=== PATIENT | female | born 1980 | race Caucasian/White ===

== ENCOUNTER 2018-08-27 10:35 | Emergency (ER) | payer OTHER ==
[2018-08-27] MEDS ORDERED: METHYLPREDNISOLONE 125 MG INJ ONE (11:38)
[2018-08-27] MEDS ORDERED: FAMOTIDINE 20 MG TAB ONE (11:38)
--- NOTE | 2018-08-27 13:05 | ER ---
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 Transition of care: patient was not received from another setting of care. Onset: The symptoms/episode began/occurred acutely. Anaphylaxis evaluation, the patient reports or I have noted the following symptoms which indicate a significant risk of anaphylaxis:. Onset of symptoms was August 27, 2018 at 10:15. Risk Assessment: Do you want to hurt yourself or someone else? Patient reports no desire to harm self or others. Initial Sepsis Screen: Does the patient meet any 2 criteria? No. Patient's initial sepsis screen is negative. Does the patient have a suspected source of infection? No. Patient's initial sepsis screen is negative. Care prior to arrival: None. 10:41 Method Of Arrival: Ambulatory 10:41 Acuity: DANIEL 3 Triage Assessment: 10:44 General: Appears in no apparent distress. uncomfortable, Behavior is calm, cooperative, hj appropriate for age. Pain: Denies pain. 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 - Social history:: Smoking status: Patient/guardian denies using tobacco, Patient/guardian denies using alcohol. - Ebola Screening: : Patient negative for fever greater than or equal to 101.5 degrees Fahrenheit, and additional compatible Ebola Virus Disease symptoms Patient denies exposure to infectious person Patient denies travel to an Ebola-affected area in the 21 days before illness onset. Screenin:44 Abuse screen: Denies threats or abuse. Denies injuries from another. Nutritional hj screening: No deficits noted. Tuberculosis screening: No symptoms or risk factors identified. Fall Risk None identified. Assessment: 10:44 Respiratory: Airway is patent Respiratory effort is even, unlabored, Respiratory hj pattern is regular, symmetrical, Breath sounds are clear. 11:00 General: Appears in no apparent distress. comfortable, Behavior is calm, cooperative, em Reports eat a banana bread snack with nuts, denies allergies to foods Denies fever. Pain: Denies pain. Neuro: Level of Consciousness is awake, alert, obeys commands, Oriented to person, place, time, situation, Speech is normal, Denies difficulty swallowing. Cardiovascular: Capillary refill < 3 seconds Patient's skin is warm and dry. Respiratory: Airway is patent Respiratory effort is even, unlabored, Respiratory pattern is regular, symmetrical, Breath sounds are clear bilaterally. Denies shortness of breath labored breathing. GI: Abdomen is obese, Patient currently denies nausea, vomiting. : No signs and/or symptoms were reported regarding the genitourinary system. Derm: Rash noted that is urticaria, on right ear, left ear and neck. Musculoskeletal: Range of motion: intact in all extremities. 11:00 EENT: Nares are clear Oral mucosa is moist. Throat uvula enlarged. Denies difficulty em swallowing. 12:00 Reassessment: Patient appears in no apparent distress at this time. Patient and/or em family updated on plan of care and expected duration. Pain level reassessed. Patient is alert, oriented x 3, equal unlabored respirations, skin warm/dry/pink. states swelling in uvula has improved to an 8/10, provider notified, will continue to monitor Patient states feeling better. Patient states symptoms have improved. 12:35 Reassessment: report feeling better, symptoms have diminished rates swelling 4/10, em provider notified. Vital Signs: 10:45 BP 151 / 98; Pulse 98; Resp 18; Temp 99.1(O); Pulse Ox 100% on R/A; Weight 122.47 kg; Height 5 ft. 1 in. (154.94 cm); Pain 0/10; 12:35 BP 148 / 94; Pulse 86; Resp 18; Pulse Ox 99% on R/A; Pain 0/10; em 10:45 Body Mass Index 51.02 (122.47 kg, 154.94 cm) ED Course: 10:38 Patient arrived in ED. mr 10:38 out of town, doctor is Private Physician. mr 10:44 Triage completed. hj 10:45 Arm band placed on left wrist. hj 10:46 Patient has correct armband on for positive identification. Bed in low position. Call hj light in reach. Side rails up X 1. 10:47 Rob Bailey PA is [facility]. jr8 10:47 Anselmo Benitez MD is Attending Physician. jr8 11:26 Scotty Cowan LVN is Primary Nurse. em 13:20 No provider procedures requiring assistance completed. Patient did not have IV access em during this emergency room visit. Administered Medications: 11:34 Drug: SOLU-Medrol 125 mg Route: IM; Site: left gluteus; em 13:22 Follow up: Response: No adverse reaction; Marked relief of symptoms em 11:34 Drug: Pepcid 20 mg Route: PO; em 13:22 Follow up: Response: No adverse reaction; Marked relief of symptoms em Outcome: 13:04 Discharge ordered by . jr8 13:20 Discharged to home ambulatory, with family. em 13:20 Condition: good 13:20 Discharge instructions given to patient, family, Instructed on discharge instructions, follow up and referral plans. medication usage, Demonstrated understanding of instructions, follow-up care, medications, Prescriptions given X 2. 13:25 Patient left the ED. em Signatures: Mago GarciaScotty, CARLOZ TEXTILE BROKER em Rob Bailey PA PA jr8 Srinivasan Pitts RN RN Corrections: (The following items were deleted from the chart) 10:47 10:45 Pulse 98bpm; Resp 18bpm; Pulse Ox 100% RA; Temp 99.1F Oral; 122.47 kg; Height 5 hj ft. 1 in.; BMI: 51.0; Pain 0/10; hj 13:18 11:00 Neuro: Level of Consciousness is awake, alert, obeys commands, Oriented to em person, place, time, situation, em 13:20 11:00 Respiratory: Airway is patent Respiratory effort is even, unlabored, Respiratory em pattern is regular, symmetrical, Breath sounds are clear bilaterally. em
--- NOTE | 2018-08-27 13:05 | EDPHYS ---
Physician Documentation [facility] Name: Yuliana Stovall Age: 38 yrs Sex: Female : 1980 Arrival Date: 08/27/2018 Time: 10:38 Bed 14 Private MD: out of town, doctor ED Physician Anselmo Benitez HPI: 08/27 11:42 This 38 yrs old Female presents to ER via Ambulatory with complaints of jr8 Allergic Reaction. 11:42 The patient presents with difficulty swallowing, itching, rash. Onset: The jr8 symptoms/episode began/occurred acutely, today. Associated signs and symptoms: The patient has no apparent associated signs or symptoms. Possible causes: [place] Banana bread crackers . At home the patient or guardian has treated the symptoms with Benadryl. Severity of symptoms: At their worst the symptoms were mild in the emergency department the symptoms are unchanged. The patient has not experienced similar symptoms in the past. The patient has not recently seen a physician. 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 - Social history:: Smoking status: Patient/guardian denies using tobacco, Patient/guardian denies using alcohol. - Ebola Screening: : Patient negative for fever greater than or equal to 101.5 degrees Fahrenheit, and additional compatible Ebola Virus Disease symptoms Patient denies exposure to infectious person Patient denies travel to an Ebola-affected area in the 21 days before illness onset. ROS: 11:42 Eyes: Negative for injury, pain, redness, and discharge, Neck: Negative for injury, jr8 pain, and swelling, Cardiovascular: Negative for chest pain, palpitations, and edema, Respiratory: Negative for shortness of breath, cough, wheezing, and pleuritic chest pain, Abdomen/GI: Negative for abdominal pain, nausea, vomiting, diarrhea, and constipation, Back: Negative for injury and pain, MS/Extremity: Negative for injury and deformity, Neuro: Negative for headache, weakness, numbness, tingling, and seizure. 11:42 ENT: Positive for difficulty swallowing, Negative for drainage from ear(s), ear pain, rhinorrhea, sinus congestion, sinus pain, sore throat, difficulty handling secretions, hoarseness. 11:42 Skin: Positive for rash. Exam: 11:42 Eyes: Pupils equal round and reactive to light, extra-ocular motions intact. Lids and jr8 lashes normal. Conjunctiva and sclera are non-icteric and not injected. Cornea within normal limits. Periorbital areas with no swelling, redness, or edema. Neck: Trachea midline, no thyromegaly or masses palpated, and no cervical lymphadenopathy. Supple, full range of motion without nuchal rigidity, or vertebral point tenderness. No Meningismus. Cardiovascular: Regular rate and rhythm with a normal S1 and S2. No gallops, murmurs, or rubs. Normal PMI, no JVD. No pulse deficits. Respiratory: Lungs have equal breath sounds bilaterally, clear to auscultation and percussion. No rales, rhonchi or wheezes noted. No increased work of breathing, no retractions or nasal flaring. Abdomen/GI: Soft, non-tender, with normal bowel sounds. No distension or tympany. No guarding or rebound. No evidence of tenderness throughout. Back: No spinal tenderness. No costovertebral tenderness. Full range of motion. MS/ Extremity: Pulses equal, no cyanosis. Neurovascular intact. Full, normal range of motion. Neuro: Awake and alert, GCS 15, oriented to person, place, time, and situation. Cranial nerves II-XII grossly intact. Motor strength 5/5 in all extremities. Sensory grossly intact. Cerebellar exam normal. Normal gait. 11:42 ENT: External ear(s): are unremarkable, Ear canal(s): are normal, TM's: are normal, Nose: External nose: no obvious acute abnormality, Nasal septum: is midline, Nasal mucosa: moist, Turbinates: are normal, Mouth: Lips: moist, Oral mucosa: pink and intact, moist, Gums: pink, Tongue: is moist, Posterior pharynx: Airway: patent, Tonsils: are normal in appearance, Uvula: edematous, swelling, is not appreciated, erythema, is not appreciated. 11:42 Skin: Mild rash noted to collar region of neck. erythematous papular rash . Vital Signs: 10:45 BP 151 / 98; Pulse 98; Resp 18; Temp 99.1(O); Pulse Ox 100% on R/A; Weight 122.47 kg; hj Height 5 ft. 1 in. (154.94 cm); Pain 0/10; 12:35 BP 148 / 94; Pulse 86; Resp 18; Pulse Ox 99% on R/A; Pain 0/10; em 10:45 Body Mass Index 51.02 (122.47 kg, 154.94 cm) hj MDM: 10:47 Patient medically screened. jr8 13:03 Data reviewed: vital signs, nurses notes, and as a result, I will discharge patient. jr8 Data interpreted: Pulse oximetry: on room air is 100 %. Interpretation: normal. Counseling: I had a detailed discussion with the patient and/or guardian regarding: the historical points, exam findings, and any diagnostic results supporting the discharge/admit diagnosis, the need for outpatient follow up, an allergy/residential treatment specialist, to return to the emergency department if symptoms worsen or persist or if there are any questions or concerns that arise at home. Response to treatment: the patient's symptoms have markedly improved after treatment. ED course: Rash gone. Patient without any complaint. Uvula swelling decreased. Return precautions given. . Administered Medications: 11:34 Drug: SOLU-Medrol 125 mg Route: IM; Site: left gluteus; em 13:22 Follow up: Response: No adverse reaction; Marked relief of symptoms em 11:34 Drug: Pepcid 20 mg Route: PO; em 13:22 Follow up: Response: No adverse reaction; Marked relief of symptoms em Disposition: 08/27/18 13:04 Discharged to Home. Impression: Acute Allergic Reaction . - Condition is Stable. - Discharge Instructions: Anaphylactic Reaction, Adult, Angioedema. - Prescriptions for Pepcid 20 mg Oral Tablet - take 1 tablet by ORAL route once daily for 5 days; 5 tablet. Prednisone 20 mg Oral Tablet - take 2 tablet by ORAL route once daily for 5 days; 10 tablet. - Medication Reconciliation Form, Thank You Letter, Antibiotic Education, Prescription Opioid Use form. - Follow up: Private Physician; When: 2 - 3 days; Reason: Recheck today's complaints, Continuance of care, Re-evaluation by your physician. - Problem is new. - Symptoms have improved. Signatures: Scotty Cowan, EXCHANGE CONSULTANT EXCHANGE CONSULTANTRob Monroe PA PA jr8 Srinivasan Pitts RN RN hj Corrections: (The following items were deleted from the chart) 13:25 13:04 08/27/2018 13:04 Discharged to Home. Impression: Acute Allergic Reaction . em Condition is Stable. Forms are Medication Reconciliation Form, Thank You Letter, Antibiotic Education, Prescription Opioid Use. Follow up: Private Physician; When: 2 - 3 days; Reason: Recheck today's complaints, Continuance of care, Re-evaluation by your physician. Problem is new. Symptoms have improved. jr8
== END 2018-08-27 13:25 | disposition home or self-care (01) ==
LOC: ER 10:35
DX: R21 Rash and other nonspecific skin eruption (principal); R13.10 Dysphagia, unspecified
CPT/HCPCS: 96372; 99283; J2930